=== PATIENT | female | born 1970 | race African-American/Black ===

== ENCOUNTER → 2016-10-09 | Outpatient (CLI) | payer OTHER ==
[~2016-10-09] MED LIST: NORCO 5-325 TA1 EACH PO; OTC CHOLESTEROL MED
== END ==
LOC: RAD 11:05
DX: Z12.31 Encounter for screening mammogram for malignant neoplasm of breast (principal)

== ENCOUNTER → 2017-06-04 | Outpatient (CLI) | payer OTHER | LOC: MRI 10:44 | DX: M51.27 Other intervertebral disc displacement, lumbosacral region (principal); M54.16 Radiculopathy, lumbar region ==

== ENCOUNTER → 2017-10-10 | Outpatient (CLI) | payer OTHER | LOC: RAD 00:53 | DX: N64.89 Other specified disorders of breast (principal) ==

== ENCOUNTER → 2018-09-24 | Outpatient (CLI) | payer OTHER | LOC: BC 14:35 | DX: Z12.31 Encounter for screening mammogram for malignant neoplasm of breast (principal) ==